=== PATIENT | male | born 1990 | race American Indian/Alaskan Native ===

== ENCOUNTER 2021-03-02 17:47 | Emergency (ER) | payer OTHER ==
[~2021-03-02] VITALS: Ht 170.2 cm; Wt 116.6 kg
[~2021-03-02 17:47] MED LIST: AMOX250 PO; ANTOXYBENA OT; CEPH500 PO; HYDACE5 PO; LEVSOD75; OXYACE5T PO; PENVK500 PO; PRED20 PO; PROM25 PO; RXHYDACE PO; TETR250
== END 2021-03-02 21:36 | disposition home or self-care (01) ==
LOC: ER 17:47
DX: S61.213A Laceration without foreign body of left middle finger without damage to nail, initial encounter (principal); Z23 Encounter for immunization; Z88.8 Allergy status to other drugs, medicaments and biological substances; W26.9XXA Contact with unspecified sharp object(s), initial encounter
CPT/HCPCS: 90714

== ENCOUNTER 2022-01-05 19:48 | Emergency (ER) | payer OTHER ==
[~2022-01-05] VITALS: Ht 167.6 cm; Wt 99.0 kg
[2022-01-05 23:28] LABS: Influenza A, PCR NEGATIVE (NEGATIVE); Influenza B, PCR NEGATIVE (NEGATIVE); Resp Syncytial Virus, PCR NEGATIVE (NEGATIVE)
[2022-01-05 23:59] LABS: SARS-Cov-2 (COVID-19) PCR, MMC POSITIVE (NEGATIVE)
== END 2022-01-05 22:50 | disposition left against medical advice (07) ==
LOC: ER 19:48
PROVIDERS: Physician Assistant
DX: U07.1 COVID-19 (principal); Z53.21 Procedure and treatment not carried out due to patient leaving prior to being seen by health care provider
CPT/HCPCS: 0241U